=== PATIENT | male | born 1990 | race Native Hawaiian/Other Pacific Islander ===

== ENCOUNTER 2017-05-05 10:42 | Emergency (ER) | payer OTHER ==
[2017-05-05 10:56] VITALS: RESP 18; TEMP 98.4
[2017-05-05] MEDS ORDERED: Emtricitabine-Tenofovir 200 mg-300 mg Tab PO STA (11:16)
[2017-05-05] MEDS ORDERED: cefTRIAXone (Rocephin) 250 mg Inj IM STA (11:16)
[2017-05-05 11:46] LABS: BASO % 0.4 % (0.0-2.0); EOS % 0.6 % (0.0-4.0); HEMOGLOBIN 17.5 g/dL (12.0-18.0); LYMPH # 1.5 K/uL (1.0-4.3); LYMPH % 24.6 % (20.0-40.0); MEAN CELL VOLUME 92.5 fL (80.0-94.0); MEAN CORPUSCULAR HEMOGLOBIN 32.2 pg (27.0-31.0); MEAN CORPUSCULAR HGB CONC 34.8 g/dL (33.0-37.0); MEAN PLATELET VOLUME 9.2 fL (7.2-11.7); MONO # 0.5 K/uL (0.0-0.8); NEUT # 4.1 K/uL (1.8-7.0); NEUT % 66.4 % (50.0-75.0); NRBC % 0.1 % (0.0-2.0); RBC 5.44 Mil/uL (4.40-5.90); RED CELL DISTRIBUTION WIDTH 13.5 % (11.5-14.5); WHITE BLOOD COUNT 6.2 K/uL (4.8-10.8)
--- NOTE | 2017-05-05 11:50 | C.PDOC ---
History Of Present Illness 27 yo male came to ER requesting HIV prophylaxis. Pt notes he had anal intercourse last night with another male , unsure if there was condom use. Pt notes that afterwards he saw a Tivacay bottle the partner was taking with "many refills". Pt did not ask the partner his status. Pt has no complaints of symptoms. Denies fever, penile discharge, testicular pain, anal pain or bleeding , abdominal pain or any other complaints. Time Seen by Provider: 05/05/17 11:01 Chief Complaint (Nursing): Body Fluid Exposure History Per: Patient History/Exam Limitations: no limitations Onset/Duration Of Symptoms: Hrs Past Medical History Vital Signs: Last Vital Signs Temp 98.4 F 05/05/17 10:53 Pulse 79 05/05/17 10:53 Resp 18 05/05/17 10:53 BP 141/88 05/05/17 10:53 Pulse Ox 97 05/05/17 12:32 - Medical History PMH: Depression Family History: States: Unknown Family Hx - Social History Hx Alcohol Use: No Hx Substance Use: No - Immunization History Hx Tetanus Toxoid Vaccination: No Hx Influenza Vaccination: No Hx Pneumococcal Vaccination: No Review Of Systems Except As Marked, All Systems Reviewed And Found Negative. Physical Exam - Physical Exam Appears: Well, Non-toxic, No Acute Distress Skin: Normal Color, Warm, Dry Head: Atraumatic, Normacephalic Eye(s): bilateral: Normal Inspection, EOMI Nose: Normal Oral Mucosa: Moist Neck: Normal, Normal ROM, Supple Chest: Symmetrical Cardiovascular: Rhythm Regular Respiratory: Normal Breath Sounds Gastrointestinal/Abdominal: Normal Exam, Soft, No Tenderness Back: Normal Inspection Extremity: Normal ROM Neurological/Psych: Oriented x3, Normal Speech ED Course And Treatment - Laboratory Results Result Diagrams: 05/05/17 11:39 05/05/17 11:39 O2 Sat by Pulse Oximetry: 97 Progress Note: Discussed with pt risks and benefits of prophylaxis. Encouraged speaking to partner. Discussed need for full term prohphylaxis and additional RX needed. Pt also requests STD prophylaxis. Rocephin, Zithromycin, Truvada, and Tivacy ordered. Disposition - Disposition Disposition: HOME/ ROUTINE Disposition Time: 11:47 Condition: STABLE Additional Instructions: Per your request, you were treated with medication for HIV prevention. You are given 3 days of medication. The complete treatment regimen is a 4 weeks course. Please follow up with your doctor within the next 3 days for additional prescriptions. Prescriptions: Dolutegravir Sodium [Tivicay] 50 mg PO DAILY #3 tab Emtricitabine/Tenofovir Diso [Truvada 200 MG-300 MG] 1 tab PO DAILY #3 tab Instructions: Postexposure Prophylaxis (ED) Forms: [employer] App (Martiniquais) - Clinical Impression Clinical Impression: HIV exposure
[2017-05-05 11:56] LABS: URINE BILIRUBIN NEGATIVE (NEGATIVE); URINE BLOOD NEGATIVE (NEGATIVE); URINE CLARITY Clear (Clear); URINE COLOR Yellow (YELLOW); URINE GLUCOSE (UA) NORMAL (Normal); URINE LEUKOCYTE ESTERASE NEG Leu/uL (Negative); URINE NITRATE NEGATIVE (NEGATIVE); URINE PROTEIN NEGATIVE (NEGATIVE); URINE UROBILINOGEN NORMAL mg/dL (0.2-1.0)
[2017-05-05 12:00] LABS: ALB/GLOB RATIO 1.4 (1.0-2.1); ALBUMIN 4.6 g/dL (3.5-5.0); ALT/SGPT 78 U/L (21-72); AST/SGOT 36 U/L (17-59); BLOOD UREA NITROGEN 13 mg/dL (9-20); GFR AFRICAN-AMERICAN > 60; GFR NON-AFRICAN AMERICAN > 60
[2017-05-05 13:34] VITALS: BP 129/76; PULSE 74; O2SAT 99
[2017-05-06] MEDS ORDERED: Emtricitabine-Tenofovir 200 mg-300 mg Tab PO NR (11:30)
== END 2017-05-05 13:30 | disposition home or self-care (01) ==
LOC: C.ER 10:42
DX: Z20.6 Contact with and (suspected) exposure to human immunodeficiency virus [HIV] (principal)
CPT/HCPCS: 80053; 81001; 85025; 86592; 86703; 86706; 87491; 87591; 96372; 99284; J0696